=== PATIENT | male | born 1965 | race Caucasian/White ===

== ENCOUNTER 2023-11-30 15:33 | Inpatient (IN) | payer OTHER ==
[2023-11-30 18:15] LABS: Basophils # (A) 0.1 k/uL (0-0.2); Basophils % (A) 1 %; Eosinophils # (A) 0.2 k/uL (0-0.7); Eosinophils % (A) 2 %; HCT 45.2 % (39.0-53.0); HGB 15.2 gm/dL (13.0-17.5); Lymphocytes # (A) 2.7 k/uL (1.0-4.8); Lymphocytes % (A) 32 %; MCH 31.2 pg (25.0-35.0); MCHC 33.7 g/dL (31.0-37.0); MCV 92.5 fL (80.0-100.0); Mean Platelet Volume 9.7; Monocytes # (A) 0.4 k/uL (0-1.0); Monocytes % (A) 5 %; Neutrophils # (A) 5.2 k/uL (1.3-7.7); Neutrophils % (A) 60 %; Platelet Count 240 k/uL (150-450); RBC 4.88 m/uL (4.30-5.90); RDW 12.7 % (11.5-15.5); WBC 8.7 k/uL (3.8-10.6)
[2023-11-30 18:16] LABS: ALT 19 U/L (4-49); AST 29 U/L (17-59); African American GFR (CKD) >90 (>60 ml/min/1.73 sqM); Albumin 4.4 g/dL (3.5-5.0); Alkaline Phosphatase 78 U/L (38-126); Anion Gap 10 mmol/L; Blood Urea Nitrogen 18 mg/dL (9-20); Calcium 9.3 mg/dL (8.4-10.2); Carbon Dioxide 19 mmol/L (22-30); Chloride 108 mmol/L (98-107); Glucose 78 mg/dL (74-99); Non-African American GFR(CKD) >90 (>60 ml/min/1.73 sqM); Sodium 137 mmol/L (137-145); Total Bilirubin 0.9 mg/dL (0.2-1.3); Total Protein 6.5 g/dL (6.3-8.2)
[2023-11-30 18:17] LABS: INR 1.1 (<1.2); Prothrombin Time 12.2 sec (10.0-12.5)
[2023-11-30 18:28] LABS: Partial Thromboplastin Time 45.9 sec (22.0-30.0)
[2023-11-30] MEDS ORDERED: NITROGLYCERIN SL TABS 0.4 MG TAB SUBLINGUAL PRN (19:18)
[2023-11-30] MEDS ORDERED: MORPHINE SULFATE 4 MG/ML SYRINGE IV PRN (19:18)
[2023-11-30] MEDS: HEPARIN SOD,PORK IN 0.45% NACL 25,000 UNIT in 0.45% NACL 1 250ML.BAG IV SCH (21:28)
[2023-11-30] MEDS ORDERED: IBUPROFEN 400 MG TAB PO PRN (21:38)
[2023-11-30] MEDS ORDERED: MORPHINE SULFATE 4 MG/ML SYRINGE IVP PRN (21:38)
[2023-11-30] MEDS ORDERED: NALOXONE 0.4 MG/ML 1 ML VIAL IVP PRN (21:39)
[2023-11-30] MEDS ORDERED: MELATONIN 3 MG TABLET PO PRN (21:39)
[2023-11-30] MEDS ORDERED: DOCUSATE 100 MG CAP PO PRN (21:41)
[2023-11-30] MEDS: SODIUM CHLORIDE 0.9% 1,000 ML IV SCH (22:45)
[2023-12-01 06:47] LABS: Mean Platelet Volume 9.4; Platelet Count 236 k/uL (150-450)
[2023-12-01] MEDS: ASPIRIN 325 MG TAB PO SCH (08:06)
[2023-12-01] MEDS: HEPARIN SODIUM 1,000 UN/ML (10ML VL) IV PRN (08:14)
--- NOTE | 2023-12-01 10:28 | P.HPIM ---
History of Present Illness This is a pleasant 58 years old male with no significant past medical history and he does not follow-up with PCP or take medication at home. Presents because of chest pain. Patient started vomiting about a week ago for 1 day and thoughts that related to his some soreness in his chest however the pain in his chest states for about a week so he decided to come to the emergency room. Pain in the middle nonradiating felt like a gnawing pain and pressure about 2-3/10 with no precipitating or relieving factors No significant dyspnea no cough. No other new complaint no change in urine or bowel habits. No headache or weakness or numbness Patient smokes about 1 pack/day and he was counseled to quit but he does not want to quit for now but he agrees to the nicotine patch. No alcohol or illicit drugs. Vitals stable Blood pressure is stable CBC, INR BMP and liver enzymes were unremarkable Has elevated troponin 0.5 x 3 EKG showing sinus rhythm at [address]-T changes Review of Systems Review of systems CONSTITUTIONAL: No fever, no malaise, no fatigue. HEENT: No recent visual problems or hearing problems. Denied any sore throat. CARDIOVASCULAR: No orthopnea, PND, no palpitations, no syncope. PULMONARY: No shortness of breath, no cough, no hemoptysis. GASTROINTESTINAL: No diarrhea, no nausea, no vomiting, no abdominal pain. Normoactive bowel sounds. NEUROLOGICAL: No headaches, no weakness, no numbness. HEMATOLOGICAL: Denies any bleeding or petechiae. GENITOURINARY: Denies any burning micturition, frequency, or urgency. MUSCULOSKELETAL/RHEUMATOLOGICAL: Denies any joint pain, swelling, or any muscle pain. ENDOCRINE: Denies any polyuria or polydipsia. Past Medical History History of Any Multi-Drug Resistant Organisms: None Reported Additional Past Surgical History / Comment(s): gallbladder out Past Anesthesia/Blood Transfusion Reactions: No Reported Reaction Past Psychological History: No Psychological Hx Reported Smoking Status: Current every day smoker Past Alcohol Use History: None Reported Past Drug Use History: None Reported Medications and Allergies Home Medications Medication Instructions Recorded Confirmed Type No Known Home Medications 11/30/23 11/30/23 History Allergies Allergy/AdvReac Type Severity Reaction Status Date / Time No Known Allergies Allergy Verified 11/30/23 21:04 Physical Exam Vitals: Vital Signs Temp Pulse Pulse Resp BP BP Pulse Ox 12/01/23 03:13 98.1 F 65 20 126/68 98 11/30/23 23:30 97.9 F 68 20 124/74 98 11/30/23 21:33 97.9 F 61 18 128/78 96 11/30/23 21:09 98.1 F 67 20 153/97 99 Intake and Output 11/30/23 12/01/23 12/01/23 22:59 06:59 14:59 Other: Voiding Method Toilet Toilet # Voids 1 Weight 79.379 kg GENERAL: The patient is alert and oriented x3, not in any acute distress. Well developed, well nourished. HEENT: Pupils are round and equally reacting to light. EOMI. No scleral icterus. No conjunctival pallor. Normocephalic, atraumatic. No pharyngeal erythema. No thyromegaly. CARDIOVASCULAR: S1 and S2 present. No murmurs, rubs, or gallops. PULMONARY: Chest is clear to auscultation, no wheezing , no crackles. ABDOMEN: Soft, nontender, nondistended, normoactive bowel sounds. No palpable organomegaly. MUSCULOSKELETAL: No joint swelling or deformity. EXTREMITIES: No cyanosis, clubbing, or pedal edema. NEUROLOGICAL: Gross neurological examination did not reveal any focal deficits. SKIN: No rashes. no petechiae. Results CBC & Chem 7: 12/01/23 05:59 11/30/23 16:03 Labs: Abnormal Lab Results - Last 24 Hours (Table) 11/30/23 11/30/23 11/30/23 Range/Units 16:03 16:03 16:03 APTT 45.9 H (22.0-30.0) sec Chloride 108 H (98-107) mmol/L Carbon Dioxide 19 L (22-30) mmol/L Troponin I 0.570 H* (0.000-0.034) ng/mL 11/30/23 11/30/23 Range/Units 20:00 22:19 APTT (22.0-30.0) sec Chloride (98-107) mmol/L Carbon Dioxide (22-30) mmol/L Troponin I 0.541 H* 0.529 H* (0.000-0.034) ng/mL Thrombosis Risk Factor Assmnt - Choose All That Apply Any of the Below Risk Factors Present?: Yes Each Factor Represents 1 point: Age 41-60 years Other Risk Factors: No Other congenital or acquired thrombophilia - If yes, enter type in comment: No Thrombosis Risk Factor Assessment Total Risk Factor Score: 1 Thrombosis Risk Factor Assessment Level: Low Risk Assessment and Plan Assessment: Chest pain, rule out cardiac causes Nicotine dependence Plan: Continue with heparin drip Continue with gentle hydration Cardiology consult GI prophylaxis Pepcid DVT prophylaxis heparin
[2023-12-01 10:38] LABS: Chol/HDL Ratio 4.62 Ratio; LDL Cholesterol,Calculated 101.6 mg/dL (0.0-131.0)
--- NOTE | 2023-12-01 11:37 | P.CRDCN ---
History of Present Illness History of present illness: HISTORY OF PRESENTING ILLNESS This is a pleasant 58-year-old with past medical history significant for tobacco abuse and gallbladder surgery one year ago. He has not seen a sewer digger pre viously. He states he started having mild chest discomfort on Monday. He initially had some mild cough and thought it was still some irritation and was fairly consistent and persistent. He denies real association with exertion. He has mild dyspnea. He presented to [facility] and then was transferred to [facility] secondary to non-STEMI. Troponin 0.53. EKG showing right bundle branch block with nonspecific ST depressions. He does smoke a half pack per day, no alcohol, no illicit drugs and no family history of CAD. Currently he denies any chest pain. Chest pain seemed to improve after nitro paste and heparin was given REVIEW OF SYSTEMS At the time of my exam: CONSTITUTIONAL: Denies fever or chills. CARDIOVASCULAR: +chest pain, + chronic shortness of breath, no orthopnea, PND or palpitations. RESPIRATORY: Denies cough. GASTROINTESTINAL: Denies abdominal pain, diarrhea, constipation, nausea or vomiting. MUSCULOSKELETAL: Denies myalgias. NEUROLOGIC: Denies numbness, tingling or weakness. ENDOCRINE: Denies fatigue, weight change, polydipsia or polyurina. GENITOURINARY: Denies burning, hematuria or urgency with micturation. HEMATOLOGIC: Denies history of anemia or bleeding. PHYSICAL EXAMINATION Vital signs reviewed. CONSTITUTIONAL: No apparent distress. HEENT: Head is normocephalic. Pupils are equal, round. Sclerae anicteric. Mucous membranes of the mouth are moist. No JVD. No carotid bruit. CHEST EXAMINATION: Lungs are clear to auscultation. No chest wall tenderness is noted on palpation or with deep breathing. HEART EXAMINATION: Regular rate and rhythm. S1, S2 heard. No murmurs, gallops or rub. ABDOMEN: Soft, nontender. Positive bowel sounds. EXTREMITIES: 2+ peripheral pulses, no lower extremity edema and no calf tenderness. NEUROLOGIC EXAMINATION: Patient is awake, alert and oriented x3. ASSESSMENT Non-STEMI, concerning for type I etiology Tobacco abuse Hyperlipidemia Dyspnea PLAN Continue with aspirin and heparin. Check 2-D echo. Discussed heart catheterization and patient is agreeable. Currently chest pain-free. Further recommendations to follow. Past Medical History History of Any Multi-Drug Resistant Organisms: None Reported Additional Past Surgical History / Comment(s): gallbladder out Past Anesthesia/Blood Transfusion Reactions: No Reported Reaction Past Psychological History: No Psychological Hx Reported Smoking Status: Current every day smoker Past Alcohol Use History: None Reported Past Drug Use History: None Reported Medications and Allergies Home Medications Medication Instructions Recorded Confirmed Type No Known Home Medications 11/30/23 11/30/23 History Allergies Allergy/AdvReac Type Severity Reaction Status Date / Time No Known Allergies Allergy Verified 11/30/23 21:04 Physical Exam Vitals: Vital Signs Temp Pulse Pulse Resp BP BP Pulse Ox 12/01/23 08:04 58 L 15 132/64 98 12/01/23 08:00 58 L 12/01/23 03:13 98.1 F 65 20 126/68 98 11/30/23 23:30 97.9 F 68 20 124/74 98 11/30/23 21:33 97.9 F 61 18 128/78 96 11/30/23 21:09 98.1 F 67 20 153/97 99 Intake and Output 11/30/23 12/01/23 12/01/23 22:59 06:59 14:59 Intake Total 100.965 Balance 100.965 Intake: Intake, IV Titration 100.965 Amount Heparin Sod,Pork in 0.45% 100.965 NaCl 25,000 unit In 0.45 % NaCl 1 250ml.bag @ 12 UNITS/KG/HR 9.525 mls/hr IV .Q24H [facility] Rx#: [id number] Other: Voiding Method Toilet Toilet Toilet # Voids 1 Weight 79.379 kg Results 12/01/23 05:59 11/30/23 16:03 Cardiac Enzymes 11/30/23 11/30/23 11/30/23 Range/Units 16:03 16:03 20:00 AST 29 (17-59) U/L Troponin I 0.570 H* 0.541 H* (0.000-0.034) ng/mL 11/30/23 Range/Units 22:19 AST (17-59) U/L Troponin I 0.529 H* (0.000-0.034) ng/mL Coagulation 11/30/23 12/01/23 Range/Units 16:03 05:59 PT 12.2 (10.0-12.5) sec APTT 45.9 H 29.6 (22.0-30.0) sec Lipids 12/01/23 Range/Units 05:59 Triglycerides 107.00 (0.00-149.00) mg/dL Cholesterol 157.00 (0.00-200.00) mg/dL HDL Cholesterol 34.00 L (40.00-60.00) mg/dL Cholesterol/HDL Ratio 4.62 Ratio CBC 11/30/23 12/01/23 Range/Units 16:03 05:59 WBC 8.7 (3.8-10.6) k/uL RBC 4.88 (4.30-5.90) m/uL Hgb 15.2 (13.0-17.5) gm/dL Hct 45.2 (39.0-53.0) % Plt Count 240 236 (150-450) k/uL Comprehensive Metabolic Panel 11/30/23 Range/Units 16:03 Sodium 137 (137-145) mmol/L Potassium 4.0 (3.5-5.1) mmol/L Chloride 108 H (98-107) mmol/L Carbon Dioxide 19 L (22-30) mmol/L BUN 18 (9-20) mg/dL Creatinine 0.70 (0.66-1.25) mg/dL Glucose 78 (74-99) mg/dL Calcium 9.3 (8.4-10.2) mg/dL AST 29 (17-59) U/L ALT 19 (4-49) U/L Alkaline Phosphatase 78 (38-126) U/L Total Protein 6.5 (6.3-8.2) g/dL Albumin 4.4 (3.5-5.0) g/dL Current Medications Generic Name Dose Route Start Last Admin Trade Name Freq PRN Reason Stop Dose Admin Al Hydroxide/Mg Hydroxide 15 ml 11/30/23 21:40 Mag Hydrox/Al Hydrox/Simeth 30 Ml Cup PO Q6HR PRN GI Upset Aspirin 325 mg 12/01/23 09:00 12/01/23 08:06 Aspirin 325 Mg Tab PO 325 mg DAILY [facility] Administration Docusate Sodium 100 mg 11/30/23 21:41 Docusate 100 Mg Cap PO BID PRN CONSTIPATION Heparin Sodium (Porcine) 0 unit 12/01/23 08:08 12/01/23 08:14 Heparin Sodium 1,000 Un/Ml (10ml Vl) IV 4,000 unit PER PROTOCOL PRN Administration Low PTT Protocol Heparin Sodium/Sodium Chloride 250 mls @ 9.525 mls/hr 11/30/23 19:30 12/01/23 08:04 25,000 unit/ Sodium Chloride IV 15 units/kg/hr .Q24H [facility] 11.907 mls/hr Titration Protocol 12 UNITS/KG/HR Sodium Chloride 1,000 mls @ 125 mls/hr 11/30/23 21:45 12/01/23 06:08 Saline 0.9% IV 125 mls/hr .Q8H [facility] Administration Ibuprofen 400 mg 11/30/23 21:38 Ibuprofen 400 Mg Tab PO Q6HR PRN Mild Pain or Fever > 100.5 Melatonin 3 mg 11/30/23 21:39 Melatonin 3 Mg Tablet PO HS PRN Insomnia Morphine Sulfate 4 mg 11/30/23 19:18 Morphine Sulfate 4 Mg/Ml Syringe IV Q5M PRN Chest Pain Morphine Sulfate 4 mg 11/30/23 21:38 Morphine Sulfate 4 Mg/Ml Syringe IVP Q4H PRN Severe Pain (Scale 7 to 10) Naloxone HCl 0.2 mg 11/30/23 21:39 Naloxone 0.4 Mg/Ml 1 Ml Vial IVP Q2M PRN Opioid Reversal Nicotine 1 patch 12/01/23 11:00 Nicotine 21mg/24hr Patch TRANSDERM DAILY [facility] Nitroglycerin 0.4 mg 11/30/23 19:18 Nitroglycerin Sl Tabs 0.4 Mg Tab SUBLINGUAL Q5M PRN Chest Pain Ondansetron HCl 4 mg 11/30/23 21:40 Ondansetron 4 Mg/2 Ml Vial IVP Q8HR PRN Nausea And Vomiting Intake and Output 11/30/23 12/01/23 12/01/23 22:59 06:59 14:59 Intake Total 100.965 Balance 100.965 Intake: Intake, IV Titration 100.965 Amount Heparin Sod,Pork in 0.45% 100.965 NaCl 25,000 unit In 0.45 % NaCl 1 250ml.bag @ 12 UNITS/KG/HR 9.525 mls/hr IV .Q24H [facility] Rx#: [id number] Other: Voiding Method Toilet Toilet Toilet # Voids 1 Weight 79.379 kg 12/01/23 05:59 11/30/23 16:03
[2023-12-01 11:44] VITALS: TEMP 98
[2023-12-01] MEDS: NICOTINE 21MG/24HR PATCH TRANSDERM SCH (11:45)
[2023-12-01] MEDS ORDERED: ALPRAZolam 0.5 MG TAB PO PRN (12:00)
[2023-12-01] MEDS ORDERED: NITROGLYCERIN SL TABS 0.4 MG TAB SUBLINGUAL PRN (12:00)
[2023-12-01] MEDS ORDERED: ALPRAZolam 0.25 MG TAB PO PRN (12:00)
[2023-12-01] MEDS ORDERED: ASPIRIN 325 MG TAB PO STA (12:00)
[2023-12-01] MEDS: ATORVASTATIN 80 MG TAB PO STA (13:18)
[2023-12-01] MEDS ORDERED: VERAPAMIL 2.5 MG/ML 2 ML AMP ONE (13:45)
[2023-12-01] MEDS ORDERED: HEPARIN SODIUM 1,000 UN/ML (10ML VL) ONE (13:46)
[2023-12-01] MEDS ORDERED: LIDOCAINE 1% INJ 10MG/ML (20 ML MDV) ONE (13:46)
[2023-12-01] MEDS ORDERED: fentaNYL (PF) 50 MCG/ML 2 ML AMP ONE (13:46)
[2023-12-01] MEDS: fentaNYL (PF) 50 MCG/1 ML VIAL IVP ONE (14:02)
[2023-12-01] MEDS: MIDAZOLAM 2 MG/2 ML VIAL IVP ONE (14:02)
[2023-12-01] MEDS: VERAPAMIL 2.5 MG/ML 4 ML VIAL INTRAARTER ONE (14:02)
[2023-12-01] MEDS: LIDOCAINE 1% INJ 10MG/ML (20 ML MDV) SQ ONE (14:02)
[2023-12-01] MEDS: HEPARIN SODIUM 1,000 UN/ML (10ML VL) IVP ONE ×3 (14:05→14:24)
[2023-12-01] MEDS ORDERED: TICAGRELOR 90 MG TAB ONE (14:10)
[2023-12-01] MEDS: TICAGRELOR 90 MG TAB PO ONE (14:12)
[2023-12-01] MEDS: NITROGLYCERIN 1000MCG/10ML SYRINGE INTRACORON ONE ×2 (14:20→14:31)
[2023-12-01] MEDS: IOPAMIDOL-370 200ML BTL INTRATHECA ONE (14:48)
[2023-12-01] MEDS: SODIUM CHLORIDE 0.9% 1,000 ML IV ONE (14:49)
[2023-12-01] MEDS: HEPARIN SODIUM,PORCINE (1 ML) 2,500 UNIT in SODIUM CHLORIDE 0.9% 250 ML IRRIGATION ONE (14:49)
[2023-12-01] MEDS: MAG HYDROX/AL HYDROX/SIMETH 30 ML CUP PO PRN (17:36)
--- NOTE | 2023-12-01 18:09 | CA ---
Transthoracic Echo Report Name: Lui Paul Age: 58 Gender: M : 1965 Exam Date: 12/01/2023 16:16 Exam Location: [facility] Ht (in): 71 Wt (lb): 175 Ordering Physician: Jonathan Christina DO ([email or web address]) Attending/Referring Phys: Full Stack Software Developer Flor Bautista RDCS Procedure CPT: Indications: re: LV function Cardiac Hx: Technical Quality: Fair Contrast 1: Total Dose (mL): Contrast 2: Total Dose (mL): MEASUREMENTS (Male / Female) Normal Values 2D ECHO LV Diastolic Diameter PLAX 4.4 cm 4.2 - 5.9 / 3.9 - 5.3 cm LV Systolic Diameter PLAX 2.4 cm IVS Diastolic Thickness 1.2 cm 0.6 - 1.0 / 0.6 - 0.9 cm LVPW Diastolic Thickness 1.2 cm 0.6 - 1.0 / 0.6 - 0.9 cm LV Relative Wall Thickness 0.5 RV Internal Dim ED PLAX 4.8 cm LA Volume 44.1 cm??? 18 - 58 / 22 - 52 cm??? LA Volume Index 22.1 cm???/m??? 16 - 28 cm???/m??? M-MODE Aortic Root Diameter MM 2.7 cm LA Systolic Diameter MM 5.4 cm LA Ao Ratio MM 2.0 AV Cusp Separation MM 1.5 cm DOPPLER AV Peak Velocity 150.1 cm/s AV Peak Gradient 9.0 mmHg AV Mean Velocity 107.2 cm/s AV Mean Gradient 5.0 mmHg AV Velocity Time Integral 31.0 cm LVOT Peak Velocity 107.8 cm/s LVOT Peak Gradient 4.6 mmHg LVOT Velocity Time Integral 26.9 cm MV Area PHT 3.5 cm??? Mitral E Point Velocity 66.6 cm/s Mitral A Point Velocity 68.5 cm/s Mitral E to A Ratio 1.0 MV Deceleration Time 215.6 ms MV E' Velocity 5.9 cm/s Mitral E to MV E' Ratio 11.3 TR Peak Velocity 247.0 cm/s TR Peak Gradient 24.4 mmHg Right Ventricular Systolic Press 28.5 mmHg FINDINGS Left Ventricle Borderline left ventricular hypertrophy. Left ventricular cavity size normal. Normal left ventricular systolic function with no obvious regional wall motion abnormalities. Left ventricular ejection fraction is estimated at 55-60 %. Right Ventricle Normal RV size and systolic function. Right ventricular systolic pressure within normal limits. Right Atrium Normal right atrial size. Left Atrium Normal left atrial size. Mitral Valve Structurally normal mitral valve. No mitral stenosis. Trace mitral regurgitation. Aortic Valve Trileaflet aortic valve. No aortic valve stenosis or regurgitation. Tricuspid Valve Structurally normal tricuspid valve. Mild tricuspid regurgitation. Pulmonic Valve Structurally normal pulmonic valve. Trace pulmonic regurgitation. Pericardium No pericardial effusion. Aorta Normal size aortic root and proximal ascending aorta. CONCLUSIONS Left ventricular ejection fraction is estimated at 55-60 %. No obvious regional wall motion abnormality Normal RV size and systolic function. No significant chamber size abnormality or valvular dysfunction Previewed by: Dr Scout Forrest (Electronically Signed) Final Date: 01 December 2023 18:08
[2023-12-01 19:46] VITALS: RESP 16
[2023-12-01] MEDS: TICAGRELOR 90 MG TAB PO SCH (21:03)
[2023-12-01] MEDS: lisinopriL 5 MG TAB PO SCH (21:04)
[2023-12-01] MEDS: ATORVASTATIN 80 MG TAB PO SCH (21:05)
[2023-12-01] MEDS: METOPROLOL SUCCINATE (ER) 25 MG TAB.ER.24H PO SCH (21:15)
[2023-12-01] MEDS: METOPROLOL TARTRATE 12.5 MG TAB PO SCH (21:16)
--- NOTE | 2023-12-01 23:30 | P.PRCINT ---
Percutaneous Coronary Int. - Percutaneous Coronary Intervention Percutaneous Coronary Intervention: PROCEDURES PERFORMED: Left heart catheterization, bilateral coronary angiography, ultrasound guided arterial access, PCI proximal LAD with a 3.5 x 12mm Xience JONEL, post dilated with a 4.0 NC balloon, IVUS LAD INDICATION: NSTEMI CONSENT:I have discussed the risks, benefits and alternative therapies for the above-mentioned procedure and for both sedation/analgesia as well as necessary blood product administration, if indicated, as they pertain to this patient. The patient has indicated understanding and acceptance of the risks and procedures discussed. PROCEDURE: After the risks, benefits and alternatives of the above mentioned procedure explained in detail with the patient, informed consent was obtained. Patient was taken to the catheterization lab and prepped and draped in usual fashion. Ultrasound guidance was used to assess for arterial access. 1% lidocaine was used to anesthetize the right radial artery. A 6-Emirati sheath was placed in the right radial artery using modified Seldinger technique and ultrasound guidance. Left coronary angiography was performed with a 5-Emirati JL 3.5 catheter and right coronary angiography was performed with a 5-Emirati FR5 catheter in various views. A 5-Emirati FR5 catheter was inserted into the left ventricle and pressure measurements were obtained. The decision was made to perform PCI of LAD. A 6-Emirati CLS 3.5 guide was used to engage the left main. A 0.014 MW wire was advanced in the distal LAD and additional 0.014 BMW wire was advanced the distal diagonal branch. Predilation was performed with a 2.5 x 8 mm balloon. Intravascular ultrasound was performed which showed reference vessel proximally 3.5-4.0 vessel. Next PCI was performed of the proximal LAD insurance and this was before the takeoff of the diagonal branch with a 3.5 x 12 mm Xience drug-eluting stent. Repeat intravascular ultrasound showed mild underexpansion of the mid stent and therefore this portion was postdilated with a 4.0 noncompliant balloon up to 11 patrick. Final angiograms were performed as well as repeat intravascular ultrasound which showed excellent stent expansion and no dissection. Preintervention there was 80% proximal LAD stenosis with AURA 3 flow and postintervention there was less than 10% stenosis with AURA 3 flow. The right radial sheath was removed and a TR band was placed with hemostasis achieved. The patient tolerated the procedure well. Patient was transported back to the post catheterization holding area in stable condition. Conscious Sedation: Patient was monitored under the direct supervision of myself for conscious sedation using Versed and fentanyl for a total duration of 38 minutes HEMODYNAMICS: Aorta: 157/83 LV: 163/13, LVEDP 23 SELECTIVE CORONARY ARTERIOGRAPHY: LEFT MAIN: The left main is a large caliber vessel which bifurcates into the LAD and circumflex. There is 10% stenosis. LEFT ANTERIOR DESCENDING CORONARY ARTERY: LAD is a large caliber vessel which wraps around to the apex. There is a focal proximal LAD 80% stenosis which is somewhat hazy consistent with plaque rupture. The mid to distal LAD has diffuse 20-30% LAD stenosis. LEFT CIRCUMFLEX CORONARY ARTERY: Left circumflex is a moderate caliber vessel with mild luminal irregularities. RIGHT CORONARY ARTERY: The right coronary artery is a large caliber vessel which gives off a PDA and PLV branch and is the dominant vessel. There is a mid RCA 40% stenosis of otherwise mild luminal irregularities FINAL IMPRESSION: 1. CAD as described above including 40% RCA, 80% proximal LAD and 20 of 30% mid LAD stenosis 2. Elevated left sided filling pressures 3. S/p PCI proximal LAD with a 3.5 x 12mm Xience JONEL, post dilated with a 4.0 NC balloon PLAN: 1. Aggressive risk factor modification per most recent ACC/AHA guidelines. 2. Continue dual antiplatelets with aspirin and Brillinta for 12 months 3. Tobacco cessation discussed in detail with the patient and patient is agreeable to consider. Recommended program and gave patient information for [place] quit line.
[2023-12-02] MEDS: ONDANSETRON 4 MG/2 ML VIAL IVP PRN (02:19)
[2023-12-02 06:18] LABS: Basophils % (A) 0 %; Eosinophils # (A) 0.2 k/uL (0-0.7); Eosinophils % (A) 2 %; HCT 40.1 % (39.0-53.0); HGB 13.4 gm/dL (13.0-17.5); Lymphocytes # (A) 1.4 k/uL (1.0-4.8); Lymphocytes % (A) 17 %; MCHC 33.3 g/dL (31.0-37.0); MCV 92.9 fL (80.0-100.0); Mean Platelet Volume 9.5; Monocytes # (A) 0.6 k/uL (0-1.0); Monocytes % (A) 7 %; Neutrophils % (A) 72 %; Platelet Count 240 k/uL (150-450); RBC 4.31 m/uL (4.30-5.90); RDW 12.4 % (11.5-15.5); WBC 8.3 k/uL (3.8-10.6)
[2023-12-02 06:40] LABS: African American GFR (CKD) >90 (>60 ml/min/1.73 sqM); Anion Gap 7 mmol/L; Blood Urea Nitrogen 10 mg/dL (9-20); Calcium 9.1 mg/dL (8.4-10.2); Carbon Dioxide 21 mmol/L (22-30); Chloride 106 mmol/L (98-107); Glucose 97 mg/dL (74-99); Non-African American GFR(CKD) >90 (>60 ml/min/1.73 sqM); Sodium 134 mmol/L (137-145)
[2023-12-02] MEDS ORDERED: HEPARIN SODIUM,PORCINE 10,000 UNIT in SODIUM CHLORIDE 0.9% 1,000 ML IRRIGATION PRN (07:00)
[2023-12-02] MEDS ORDERED: HEPARIN SODIUM,PORCINE (1 ML) 2,500 UNIT in SODIUM CHLORIDE 0.9% 250 ML IRRIGATION PRN (07:00)
[2023-12-02] MEDS: ASPIRIN 81 MG PO SCH (09:32)
[2023-12-02 10:14] VITALS: PULSE 54
[2023-12-02 13:45] VITALS: BP 136/76
--- NOTE | 2023-12-02 15:37 | P.PN ---
Subjective Progress Note Date: 12/02/23 HISTORY OF PRESENTING ILLNESS This is a pleasant 58-year-old with past medical history significant for tobacco abuse and gallbladder surgery one year ago. He has not seen a senior quality control inspector previously. He states he started having mild chest discomfort on Monday. He initially had some mild cough and thought it was still some irritation and was fairly consistent and persistent. He denies real association with exertion. He has mild dyspnea. He presented to [facility] and then was transferred to [facility] secondary to non-STEMI. Troponin 0.53. EKG showing right bundle branch block with nonspecific ST depressions. He does smoke a half pack per day, no alcohol, no illicit drugs and no family history of CAD. Currently he denies any chest pain. Chest pain seemed to improve after nitro paste and heparin was given 12/01 He is status post PCI 12/01/2023 of the LAD. He was started on aspirin and Brilinta. LDL is 101. Echocardiogram shows EF of 55-60%. He is feeling well. Denies any chest pain or pressure. No shortness of breath. PHYSICAL EXAMINATION Vital signs reviewed. CONSTITUTIONAL: No apparent distress. HEENT: Head is normocephalic. Pupils are equal, round. Sclerae anicteric. Mucous membranes of the mouth are moist. No JVD. No carotid bruit. CHEST EXAMINATION: Lungs are clear to auscultation. No chest wall tenderness is noted on palpation or with deep breathing. HEART EXAMINATION: Regular rate and rhythm. S1, S2 heard. No murmurs, gallops or rub. ABDOMEN: Soft, nontender. Positive bowel sounds. EXTREMITIES: 2+ peripheral pulses, no lower extremity edema and no calf tenderness. Right radial site with no redness swelling or drainage. NEUROLOGIC EXAMINATION: Patient is awake, alert and oriented x3. ASSESSMENT Non-STEMI, concerning for type I etiology Tobacco abuse Hyperlipidemia Dyspnea CAD status post PCI of the LAD 12/01/2023 PLAN Will continue with dual antiplatelet therapy with aspirin and Brilinta for 12 months. Continue with statin and metoprolol. Smoking cessation was strongly emphasized. Check apolipoprotiens. 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 Patient is cleared for discharge home from cardiology standpoint. Follow-up in office in 1 week. Patient seen in rounds with Dr. Christina, plan of care agreed upon. Objective - Vital Signs Vital signs: Vital Signs Temp 98.0 F 12/02/23 08:00 Pulse 54 L 12/02/23 08:00 Resp 16 12/02/23 08:00 BP 118/70 12/02/23 08:00 Pulse Ox 98 12/02/23 08:00 FiO2 Intake & Output 12/01/23 12/02/23 12/02/23 18:59 06:59 18:59 Intake Total 676.965 250 180 Output Total 1 Balance 676.965 249 180 Intake: IV 350 250 Sodium Chloride 0.9% 1, 250 000 ml @ 125 mls/hr IV . Q8H [facility] Rx#:[id number] Intake, IV Titration 100.965 Amount Heparin Sod,Pork in 0.45% 100.965 NaCl 25,000 unit In 0.45 % NaCl 1 250ml.bag @ 12 UNITS/KG/HR 9.525 mls/hr IV .Q24H [facility] Rx#: [id number] Oral 226 180 Output: Emesis 1 Other: Voiding Method Toilet Toilet # Voids 2 1 - Labs CBC & Chem 7: 12/02/23 05:44 12/02/23 05:44 Labs: Abnormal Lab Results - Last 24 Hours (Table) 12/01/23 12/02/23 Range/Units 12:41 05:44 APTT 67.2 H (22.0-30.0) sec Sodium 134 L (137-145) mmol/L Carbon Dioxide 21 L (22-30) mmol/L Creatinine 0.62 L (0.66-1.25) mg/dL
--- NOTE | 2023-12-02 23:22 | P.DS ---
Providers Date of admission: 11/30/23 19:18 Attending physician: Albina Barrera Consults: 11/30/23 19:18 Consult Physician Urgent Consulting Provider: Jonathan Christina Consult Reason/Comments: NSTEMI Do you want consulting provider notified?: Already Contacted Primary care physician: Stated None Hospital Course: Diagnoses: Chest pain, secondary to coronary artery disease s/p cardiac cath and PCI to LAD Nicotine dependence Hospital course: This is a pleasant 58 years old male with no significant past medical history and he does not follow-up with PCP or take medication at home. Presents because of chest pain. Patient started vomiting about a week ago for 1 day Patient evaluated by pipe tester, he underwent cardiac cath showing 40% stenosis of RCA, 20 to 30% of LAD and 80% proximal circumflex, s/p PCI to LAD. Patient started as well as metoprolol and lisinopril. Upon discharge patient was asymptomatic with no chest pain dyspnea or any other new complaints He was so eager to go home today Patient was cleared for discharge by pipe tester The importance of adherence to dual antiplatelet therapy explained for the patient as well as the risk and he verbalized understanding and acceptance Problems and management plan were discussed with the patient and he verbalized understanding and acceptance Patient was found stable and can be discharged home in guarded prognosis however he needs follow-up as an outpatient. Patient was instructed to follow up with PCP within one week and patient agrees Patient was instructed to follow-up with pipe tester Dr. Christina in 1 week after discharge and he agrees Physical exam Gen: patient is a AAOx3, no distress CVS: S1-S2, RRR, no murmur Lungs: B/L CTA, no wheezing Abdomen: soft, no distention, no tenderness, positive bowel sounds Extremity: no leg edema or induration Time spent more than 35 minutes Plan - Discharge Summary Discharge Rx Participant: No New Discharge Prescriptions: New Aspirin 81 mg PO DAILY #30 tab Ticagrelor [Brilinta] 90 mg PO BID #60 tab Nicotine 21Mg/24Hr Patch [Habitrol] 1 patch TRANSDERM DAILY #3 dropper Atorvastatin [Lipitor] 80 mg PO HS #30 tab Metoprolol Tartrate [Lopressor] 12.5 mg PO BID #60 tab Nitroglycerin Sl Tabs [Nitrostat] 0.4 mg SUBLINGUAL Q5M PRN #10 tab PRN Reason: Chest Pain lisinopriL [Zestril] 5 mg PO BID #60 tab Discharge Medication List Aspirin 81 mg PO DAILY #30 tab 12/02/23 [Rx] Atorvastatin [Lipitor] 80 mg PO HS #30 tab 12/02/23 [Rx] Metoprolol Tartrate [Lopressor] 12.5 mg PO BID #60 tab 12/02/23 [Rx] Nicotine 21Mg/24Hr Patch [Habitrol] 1 patch TRANSDERM DAILY #3 dropper 12/02/23 [Rx] Nitroglycerin Sl Tabs [Nitrostat] 0.4 mg SUBLINGUAL Q5M PRN #10 tab 12/02/23 [Rx] Ticagrelor [Brilinta] 90 mg PO BID #60 tab 12/02/23 [Rx] lisinopriL [Zestril] 5 mg PO BID #60 tab 12/02/23 [Rx] Follow up Appointment(s)/Referral(s): Jonathan Christina, [STAFF PHYSICIAN] - 1 Week (please call and set up appointment to see Dr. Christina in 1 week. ) None,Stated [Primary Care Provider] - 1 Week (Please establish primary care physician to be seen within one week.) Patient Instructions/Handouts: Heart Healthy Diet (DC), Heart Catheterization (DC) Activity/Diet/Wound Care/Special Instructions: heart healthy diet activity is restricted till you see your doctor we recommend you to contact your health insurance provider to find a nearby primary care physician, please call to make an appointment within one week Discharge Disposition: HOME SELF-CARE
[2023-12-04 03:33] LABS: B/A1 Ratio 0.67 Ratio (0.35 - 1.00)
== END 2023-12-02 15:58 | disposition home or self-care (01) | DRG 322 ==
LOC: EC 15:33 → 3SCARD 19:18
PROVIDERS: ADMIT Hospitalist; ATTEND Hospitalist
PROC: B240ZZ3 Ultrasonography of Single Coronary Artery, Intravascular (ICD-10-PCS; 2023-12-01)
PROC: 027034Z Dilation of Coronary Artery, One Artery with Drug-eluting Intraluminal Device, Percutaneous Approach (ICD-10-PCS; principal; 2023-12-01 12:50)
PROC: 4A023N7 Measurement of Cardiac Sampling and Pressure, Left Heart, Percutaneous Approach (ICD-10-PCS; 2023-12-01 12:50)
PROC: B2111ZZ Fluoroscopy of Multiple Coronary Arteries using Low Osmolar Contrast (ICD-10-PCS; 2023-12-01 12:50)
DX: I21.4 Non-ST elevation (NSTEMI) myocardial infarction (principal); E78.5 Hyperlipidemia, unspecified; I25.10 Atherosclerotic heart disease of native coronary artery without angina pectoris; F17.210 Nicotine dependence, cigarettes, uncomplicated; I45.10 Unspecified right bundle-branch block
CPT/HCPCS: 36415; 80048; 80053; 80061; 82172; 83695; 84484; 85025; 85049; 85610; 85730; 92978; 93306; 93458; 96365; 99285